=== PATIENT | male | born 2000 | race American Indian/Alaskan Native ===

== ENCOUNTER 2021-06-29 17:08 | Emergency (ER) | payer OTHER ==
[2021-06-29 18:06] VITALS: BP 118/71
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
== END 2021-06-29 19:50 | disposition home or self-care (01) ==
LOC: ED 17:08
DX: M54.2 Cervicalgia (principal); R51.9 Headache, unspecified; M54.5 Low back pain; Z98.890 Other specified postprocedural states; Z79.899 Other long term (current) drug therapy; V87.7XXA Person injured in collision between other specified motor vehicles (traffic), initial encounter; Y93.89 Activity, other specified; Y92.488 Other paved roadways as the place of occurrence of the external cause; Y99.8 Other external cause status
CPT/HCPCS: 72040; 99283